=== PATIENT | female | born 1970 | race Hispanic/Latino ===

== ENCOUNTER 2022-01-03 11:47 | Emergency (ER) | payer SELFPAY ==
[2022-01-03 12:36] LABS: Hemoglobin 4.1 g/dL (12.0-16.0); Mean Corpuscular HGB CONC 32.3 g/dL (32.0-36.0); Mean Corpuscular Hemoglobin 30.5 pg (27.0-31.0); Mean Corpuscular Volume 94.5 fL (78.0-98.0); Mean Platelet Volume 6.3 fL (7.4-10.4); Platelet Count 161 thou/uL (130-400); Red Blood Cell (RBC) Count 1.34 mill/uL (4.20-5.40); White Blood Cell (WBC) Count 59.2 thou/uL (4.8-10.8)
[2022-01-03 12:39] LABS: Reticulocyte Count 1.9 % (0.5-1.5)
[2022-01-03 12:51] LABS: ALT (SGPT) 34 U/L (8-55); AST (SGOT) 23 U/L (5-34); Albumin 4.1 g/dL (3.5-5.0); Alkaline Phosphatase 147 U/L (40-110); Anion Gap 12 mmol/L (10-20); BUN (Urea Nitrogen) 17 mg/dL (9.8-20.1); Bilirubin, Total 0.5 mg/dL (0.2-1.2); Calc. Creatinine Clearance 0 mL/min (70-130); Calcium 8.9 mg/dL (7.8-10.44); Carbon Dioxide 25 mmol/L (22-29); Chloride 108 mmol/L (98-107); Globulin 3.2 g/dL (2.4-3.5); Glucose 105 mg/dL (70-105); Iron 160 ug/dL (50-170); Iron Binding Capacity, Total 303 mcg/dL (265-497); Potassium 3.8 mmol/L (3.5-5.1); Protein, Total 7.3 g/dL (6.0-8.3); Sodium 141 mmol/L (136-145)
[2022-01-03 12:52] LABS: Anisocytosis SLIGHT = 6-15 cells (100X) (0-5/hpf); Band 3 % (5-11); Differential Comment Blast-Like Cell(s); Eosinophils 1 % (0-10); Lymphocytes 35 % (21-51); MDiff Complete? YES; Neutrophil 3 % (42-75); Platelet Morphology Comment Appears Adequate; Polychromasia SLIGHT = 2-3 cells (100X) (0-2/hpf); Reflex for Review?? YES
[2022-01-03 15:46] LABS: INR-International Normal Ratio 1.1; PTT 29.3 sec (22.9-36.1); Prothrombin Time 13.8 sec (12.0-14.7)
[2022-01-03 15:49] LABS: D-Dimer Test 0.97 *mcg/mL (0.27-0.43)
[2022-01-03 16:09] LABS: SARS-CoV-2 NAA Rapid Test Not Detected (NotDetected)
[2022-01-03] MEDS ORDERED: Acetaminophen 325 MG TAB ONE (16:45)
== END 2022-01-03 19:02 | disposition short-term general hospital (02) ==
LOC: ERS 11:47
DX: C95.00 Acute leukemia of unspecified cell type not having achieved remission (principal); Z20.822 Contact with and (suspected) exposure to COVID-19
CPT/HCPCS: 36415; 36430; 80053; 82728; 83540; 83550; 83615; 85025; 85046; 85060; 85379; 85384; 85610; 85730; 86850; 86870; 86880; 86900; 86901; 86905; 86922; 88184; 99285; P9016; U0002

== ENCOUNTER 2022-05-27 12:37 | Inpatient (IN) | payer SELFPAY ==
[2022-05-27 13:28] LABS: Hemoglobin 5.3 g/dL (12.0-16.0); Mean Corpuscular HGB CONC 33.5 g/dL (32.0-36.0); Mean Corpuscular Hemoglobin 33.3 pg (27.0-31.0); Mean Corpuscular Volume 99.3 fL (78.0-98.0); Mean Platelet Volume 7.6 fL (7.4-10.4); Platelet Count 168 thou/uL (130-400); RBC Distribution Width 12.9 % (11.5-14.5); Red Blood Cell (RBC) Count 1.58 mill/uL (4.20-5.40)
[2022-05-27 13:54] LABS: ALT (SGPT) 38 U/L (8-55); AST (SGOT) 19 U/L (5-34); Albumin 4.2 g/dL (3.5-5.0); Alkaline Phosphatase 119 U/L (40-110); Anion Gap 14 mmol/L (10-20); BUN (Urea Nitrogen) 16 mg/dL (9.8-20.1); Bilirubin, Total 0.3 mg/dL (0.2-1.2); Calc. Creatinine Clearance 0 mL/min (70-130); Calcium 8.8 mg/dL (7.8-10.44); Carbon Dioxide 24 mmol/L (22-29); Chloride 108 mmol/L (98-107); Estimated GFR 100; Globulin 2.6 g/dL (2.4-3.5); Glucose 118 mg/dL (70-105); Potassium 3.7 mmol/L (3.5-5.1); Protein, Total 6.8 g/dL (6.0-8.3); Sodium 142 mmol/L (136-145)
[2022-05-27 14:06] LABS: Band 4 % (5-11); Blast 63 % (0-0); Lymphocytes 25 % (21-51); MDiff Complete? YES; Monocytes 2 % (0-10); Neutrophil 3 % (42-75); Platelet Morphology Comment Appears Adequate; Polychromasia SLIGHT = 2-3 cells (100X) (0-2/hpf); Reactive Lymphocytes 3 % (0-10)
[2022-05-27 15:45] LABS: SARS-CoV-2 NAA Rapid Test Not Detected (NotDetected)
[2022-05-27 17:19] VITALS: BMI 28.6
[2022-05-27] MEDS ORDERED: Acetaminophen 500 MG TAB PO PRN (19:16)
[2022-05-27 19:57] LABS: Hemoglobin 5.8 g/dL (12.0-16.0)
[2022-05-27] MEDS ORDERED: Ondansetron PF 4 MG/2 ML Vial IVP PRN (21:35)
[2022-05-27] MEDS ORDERED: Senokot S 8.6-50 MG TAB PO PRN (21:35)
[2022-05-27] MEDS ORDERED: Acetaminophen 325 MG TAB PO PRN (21:35)
[2022-05-27] MEDS ORDERED: Melatonin 3 MG TAB PO PRN (21:40)
[2022-05-27] MEDS ORDERED: Sodium Chloride 0.9% 1,000 ML IV SCH (21:45)
[2022-05-27] MEDS ORDERED: Pantoprazole 40 MG VIAL IVP SCH (22:00)
[2022-05-28 07:27] LABS: Hemoglobin 7.6 g/dL (12.0-16.0); Mean Corpuscular HGB CONC 34.7 g/dL (32.0-36.0); Mean Corpuscular Hemoglobin 32.9 pg (27.0-31.0); Mean Corpuscular Volume 94.7 fL (78.0-98.0); Platelet Count 115 thou/uL (130-400); RBC Distribution Width 13.9 % (11.5-14.5); Red Blood Cell (RBC) Count 2.31 mill/uL (4.20-5.40); White Blood Cell (WBC) Count 17.5 thou/uL (4.8-10.8)
[2022-05-28 07:44] LABS: ALT (SGPT) 30 U/L (8-55); AST (SGOT) 15 U/L (5-34); Albumin 3.6 g/dL (3.5-5.0); Alkaline Phosphatase 98 U/L (40-110); Anion Gap 12 mmol/L (10-20); BUN (Urea Nitrogen) 17 mg/dL (9.8-20.1); Bilirubin, Total 0.7 mg/dL (0.2-1.2); Calc. Creatinine Clearance 130 mL/min (70-130); Calcium 8.5 mg/dL (7.8-10.44); Carbon Dioxide 25 mmol/L (22-29); Chloride 108 mmol/L (98-107); Estimated GFR 108; Globulin 2.1 g/dL (2.4-3.5); Glucose 99 mg/dL (70-105); Potassium 3.7 mmol/L (3.5-5.1); Protein, Total 5.7 g/dL (6.0-8.3); Sodium 141 mmol/L (136-145)
[2022-05-28] MEDS ORDERED: Prevnar 13-Val Conj/PF 0.5 ML SYRINGE IM ONE (09:00)
[2022-05-28] MEDS: Sodium Chloride 0.9% 500 ML IV SCH ×3 (09:33→10:21)
[2022-05-28] MEDS: Pantoprazole 40 MG VIAL IVP SCH (09:33)
[2022-05-28 10:08] LABS: Band 2 % (5-11); Blast 81 % (0-0); Lymphocytes 13 % (21-51); MDiff Complete? YES; Neutrophil 3 % (42-75); Platelet Morphology Comment Appears Decreased; Polychromasia SLIGHT = 2-3 cells (100X) (0-2/hpf); Promyelocytes 1 % (0-0)
[2022-05-29] MEDS: Pantoprazole 40 MG VIAL IVP SCH (08:19)
[2022-05-29 14:53] LABS: Blast 70 % (0-0); Hemoglobin 8.2 g/dL (12.0-16.0); Lymphocytes 16 % (21-51); MDiff Complete? YES; Mean Corpuscular Volume 94.1 fL (78.0-98.0); Mean Platelet Volume 7.3 fL (7.4-10.4); Monocytes 1 % (0-10); Neutrophil 9 % (42-75); Platelet Count 127 thou/uL (130-400); Platelet Morphology Comment Appears Decreased; Polychromasia SLIGHT = 2-3 cells (100X) (0-2/hpf); RBC Distribution Width 13.7 % (11.5-14.5); Reactive Lymphocytes 4 % (0-10); Red Blood Cell (RBC) Count 2.56 mill/uL (4.20-5.40); Reflex for Review?? NO; White Blood Cell (WBC) Count 11.9 thou/uL (4.8-10.8)
[2022-05-30 07:17] LABS: Hemoglobin 8.2 g/dL (12.0-16.0); Mean Corpuscular HGB CONC 33.8 g/dL (32.0-36.0); Mean Corpuscular Volume 94.6 fL (78.0-98.0); Platelet Count 114 thou/uL (130-400); RBC Distribution Width 13.5 % (11.5-14.5); Red Blood Cell (RBC) Count 2.56 mill/uL (4.20-5.40); White Blood Cell (WBC) Count 11.1 thou/uL (4.8-10.8)
[2022-05-30] MEDS: Pantoprazole 40 MG VIAL IVP SCH (08:06)
[2022-05-30 08:44] LABS: Band 9 % (5-11); Blast 60 % (0-0); Lymphocytes 26 % (21-51); MDiff Complete? YES; Monocytes 2 % (0-10); Neutrophil 3 % (42-75); Platelet Morphology Comment Appears Decreased; Polychromasia SLIGHT = 2-3 cells (100X) (0-2/hpf)
[2022-05-30 08:51] VITALS: BP 109/67; TEMP 98.3
== END 2022-05-30 09:12 | disposition short-term general hospital (02) | DRG 836 ==
LOC: ERS 12:37 → ERHOLD 14:36 → T4-A 17:09
PROVIDERS: ADMIT Internal Medicine; ATTEND Internal Medicine
PROC: 30233N1 Transfusion of Nonautologous Red Blood Cells into Peripheral Vein, Percutaneous Approach (ICD-10-PCS; principal; 2022-05-27)
DX: C91.00 Acute lymphoblastic leukemia not having achieved remission (principal); Z20.822 Contact with and (suspected) exposure to COVID-19; D63.0 Anemia in neoplastic disease; Z28.21 Immunization not carried out because of patient refusal; Z87.891 Personal history of nicotine dependence; Z83.3 Family history of diabetes mellitus; Z82.49 Family history of ischemic heart disease and other diseases of the circulatory system; Z80.8 Family history of malignant neoplasm of other organs or systems; Z79.899 Other long term (current) drug therapy
CPT/HCPCS: 36415; 36430; 80053; 85025; 86850; 86870; 86900; 86901; 86922; 99284; C9113; J7030; J7050; P9016; U0002

== ENCOUNTER 2022-08-14 14:10 | Emergency (ER) | payer SELFPAY ==
[2022-08-14 14:49] LABS: Hemoglobin 5.3 g/dL (12.0-16.0); Mean Corpuscular HGB CONC 33.2 g/dL (32.0-36.0); Mean Corpuscular Hemoglobin 32.8 pg (27.0-31.0); Mean Corpuscular Volume 98.6 fL (78.0-98.0); Mean Platelet Volume 6.6 fL (7.4-10.4); Platelet Count 198 thou/uL (130-400); RBC Distribution Width 15.6 % (11.5-14.5); Red Blood Cell (RBC) Count 1.61 mill/uL (4.20-5.40)
[2022-08-14 15:09] LABS: Anisocytosis SLIGHT = 6-15 cells (100X) (0-5/hpf); Band 4 % (5-11); Blast 69 % (0-0); Lymphocytes 19 % (21-51); MDiff Complete? YES; Monocytes 3 % (0-10); Neutrophil 5 % (42-75); Ovalocytes SLIGHT = 2-5 cells (100X) (0-1/hpf); Platelet Morphology Comment Appears Adequate; Polychromasia SLIGHT = 2-3 cells (100X) (0-2/hpf); Reflex for Review?? NO; White Blood Cell (WBC) Count 26.3 thou/uL (4.8-10.8)
[2022-08-14 15:13] LABS: ALT (SGPT) 29 U/L (8-55); AST (SGOT) 14 U/L (5-34); Albumin 3.8 g/dL (3.5-5.0); Alkaline Phosphatase 139 U/L (40-110); Anion Gap 12 mmol/L (10-20); BUN (Urea Nitrogen) 9 mg/dL (9.8-20.1); Bilirubin, Total 0.4 mg/dL (0.2-1.2); Calc. Creatinine Clearance 0 mL/min (70-130); Calcium 8.4 mg/dL (7.8-10.44); Carbon Dioxide 27 mmol/L (22-29); Chloride 102 mmol/L (98-107); Estimated GFR 105; Globulin 1.9 g/dL (2.4-3.5); Glucose 111 mg/dL (70-105); Potassium 3.7 mmol/L (3.5-5.1); Protein, Total 5.7 g/dL (6.0-8.3); Sodium 137 mmol/L (136-145)
[2022-08-14] MEDS ORDERED: Acetaminophen 500 MG TAB ONE (20:54)
== END 2022-08-14 21:48 | disposition home or self-care (01) ==
LOC: ERS 14:10
DX: C95.90 Leukemia, unspecified not having achieved remission (principal); D64.9 Anemia, unspecified
CPT/HCPCS: 36415; 36430; 71045; 80053; 83605; 83880; 84484; 85025; 86850; 86870; 86900; 86901; 86922; 93005; P9016